=== PATIENT | female | born 1990 | race Caucasian/White ===

== ENCOUNTER → 2017-08-29 09:13 | Outpatient (CLI) | payer OTHER, SELFPAY ==
[2017-08-29 10:31] LABS: Add Manual Diff / Slide Review NO; Basophils Percent Auto 0.9 % (0-2); Eosinophils Percent Auto 3.4 % (2-4); Hematocrit 41.6 % (36-46); Hemoglobin 14.4 g/dL (12.0-16.0); Lymphocytes Percent Auto 38.6 % (25-40); Mean Corpuscular HGB Conc 34.6 % (30-36); Mean Corpuscular Hemoglobin 30.6 PG (26-34); Mean Corpuscular Volume 88.4 fL (80-100); Monocytes Percent Auto 7.2 % (3-14); Neutrophils Absolute Auto 4400 /uL (3000-5900); Neutrophils Percent Auto 49.9 % (50-75); Platelet Count 298 X10^3/uL (150-400); Red Blood Cell Count 4.71 X10^6/uL (4.0-5.2); White Blood Cell Count 8.7 X10^3/uL (4.5-11.0)
[2017-08-29 11:16] LABS: Alanine Aminotransferase 19 IU/L (9-52); Albumin 4.4 g/dL (3.5-5.0); Albumin Globulin Ratio 1.3 (1.0-2.8); Alkaline Phosphatase 59 U/L (38-126); Aspartate Aminotransferase 20 IU/L (14-36); BUN Creatinine Ratio 8.8 (6-22); Bilirubin Total 0.5 mg/dL (0.2-1.3); Blood Urea Nitrogen 7 mg/dL (7-17); Calcium 9.1 mg/dL (8.4-10.2); Carbon Dioxide 26 mmol/L (22-32); Chloride 105 mmol/L (98-107); Cholesterol 170 mg/dL (140-199); Estimated Glomerular Filt Rate > 60.0 mL/min (>60); Globulin 3.5 g/dL (1.7-4.1); Glucose 83 mg/dL (70-100); HDL Cholesterol 36 mg/dL (40-60); HEMOLYSIS < 15 (0-50); LDL Cholesterol Calculated 113 mg/dL (<100); Potassium 3.9 mmol/L (3.4-5.1); Sodium 141 mmol/L (137-145); Total Protein 7.9 g/dL (6.3-8.2); Triglycerides 107 mg/dL (35-150)
== END ==
PROVIDERS: Visit Provider Student in an Organized Health Care Education/Training Program
DX: J45.909 Unspecified asthma, uncomplicated (principal)
CPT/HCPCS: 36415; 80053; 80061; 85025

== ENCOUNTER → 2018-04-10 09:42 | Outpatient (CLI) | payer OTHER, SELFPAY ==
[2018-04-10 10:10] LABS: Add Manual Diff / Slide Review NO; Basophils Absolute Auto 100 /uL (0-100); Basophils Percent Auto 0.6 % (0-2); Eosinophils Absolute Auto 100 /uL (0-450); Eosinophils Percent Auto 0.8 % (2-4); Hematocrit 40.2 % (36-46); Hemoglobin 13.5 g/dL (12.0-16.0); Lymphocytes Absolute Auto 2900 /uL (1100-4500); Lymphocytes Percent Auto 27.9 % (25-40); Mean Corpuscular HGB Conc 33.6 % (30-36); Mean Corpuscular Volume 89.4 fL (80-100); Monocytes Absolute Auto 600 /uL (0-900); Monocytes Percent Auto 6.1 % (3-14); Neutrophils Absolute Auto 6800 /uL (1500-7000); Neutrophils Percent Auto 64.6 % (50-75); Platelet Count 301 X10^3/uL (150-400); Red Cell Distribution Width 13.3 % (11.6-14.8); White Blood Cell Count 10.5 X10^3/uL (4.5-11.0)
[2018-04-10 10:11] LABS: Appearance Urine UA CLEAR; Bilirubin Urine UA NEGATIVE (NEGATIVE); Color Urine UA YELLOW; Glucose Urine UA NEGATIVE (Negative); Ketones Urine UA NEGATIVE (NEGATIVE); Leukocyte Esterase Urine UA NEGATIVE (NEGATIVE); Nitrite Urine UA NEGATIVE (Negative); Occult Blood Urine UA NEGATIVE (Negative); Protein Urine UA NEGATIVE (Negative); Specific Gravity Urine UA <=1.005 (1.000-1.035); Urobilinogen Urine UA 0.2 E.U./dL (0.2)
[2018-04-10 10:29] LABS: Hemoglobin A1C% w Est Avg Glu 4.7 % (4.0-6.0)
[2018-04-10 11:08] LABS: Hepatitis B Surface Antigen NEGATIVE s/c (NEGATIVE); Rubella Antibody IgG 21.9 IU/mL (>15)
[2018-04-10 11:29] LABS: HIV 1 and 2 Antibody NEGATIVE (NEGATIVE); Hep C Virus Ab w/Reflex Quant NEGATIVE s/c (NEGATIVE)
[2018-04-12 12:44] LABS: RPR Screen Nonreactive (Nonreactive)
== END ==
PROVIDERS: Visit Provider Specialist
DX: O09.299 Supervision of pregnancy with other poor reproductive or obstetric history, unspecified trimester (principal); Z86.32 Personal history of gestational diabetes
CPT/HCPCS: 36415; 80055; 81003; 83036; 86703; 86787; 86803; 86850; 86900; 86901; 87077; 87086

== ENCOUNTER → 2018-06-05 10:12 | Outpatient (CLI) | payer OTHER, SELFPAY ==
[2018-06-10 11:38] LABS: Calc Gestational Age 17.3; Cigarette Smoker N; Donated Egg NOT GIVEN; Donor Egg Age NOT GIVEN; Estriol, Free 1.66 ng/mL; Inhibin A, Dimeric 146 pg/mL; Maternal Weight 147 lbs; Number of Fetuses 1; Previous Pregnancy Down Syndro NOT GIVEN; hCG, Serum 16.2 IU/mL
== END ==
PROVIDERS: Visit Provider Specialist
DX: Z34.82 Encounter for supervision of other normal pregnancy, second trimester (principal); Z3A.17 17 weeks gestation of pregnancy
CPT/HCPCS: 36415; 82105; 82677; 84702; 86336

== ENCOUNTER → 2018-06-26 15:05 | Outpatient (CLI) | payer OTHER, SELFPAY ==
--- NOTE | 2018-06-26 15:06 | DI.US.S_ITS ---
PROCEDURE: US OB >= 14 WEEKS FETUS INDICATIONS: Anatomic Survey OUTSIDE/PRIOR DATING DATA: Last menstrual period (LMP): Not available. LMP-based estimated date of delivery (GISSELLE): Not available. First dating scan (date and location): 04/10/18, by Dr. Szymanski. Estimated date of delivery (GISSELLE) from first dating scan: 11/11/18, by Dr. Szymanski. TECHNIQUE: Real-time scanning was performed of the fetus, with image documentation and biometric measurements. Endovaginal scanning: Not needed for this examination. COMPARISON: [facility], , OB >= 14 WEEKS FETUS, 06/05/2018, 10:07. FINDINGS: General: A single living intrauterine gestation is present. Presentation: Breech. Placenta: Placental position is posterior, without previa. Amniotic fluid index: 7.5 cm, normal range is 5-24 cm. heart rate: 143 beats per minute. Maternal cervical canal: 3.9 cm long. Normal lower limit is 2.5 cm. biometrics: Biparietal diameter: 4.4 cm, 19 weeks 2 days Head circumference: 17.6 cm, 20 weeks 1 day Abdominal circumference: 17.0 cm, 22 weeks 0 days Femur length: 3.2 cm, 20 weeks 0 days Estimated gestational age from initial scan: 20 weeks 2 days Composite gestational age from present scan: 20 weeks 3 days Estimated weight and percentile: 385 g, 79th percentile Measurement variability for biometric dating: +/- 7 days from 14 weeks to 15 weeks 6 days gestation, +/- 10 days from 16 weeks to 21 weeks 6 days gestation, +/- 2 weeks from 22 weeks to 27 weeks 6 days gestation, +/- 3 weeks for 28 weeks gestation or later. weight reference: 4500 g or EFW >90/95% is considered macrosomia or large for gestational age. EFW <10% is small for gestational age. EFW 5% or less is considered intra-uterine growth restriction. Anatomic survey: Neuro: Ventricles are non-dilated at less than 10 mm. Cisterna magna is normal at 3-11 mm. Cerebellum is normal in size and morphology. Nuchal skin fold: Normal at less than 6 mm between 14-21 weeks gestational age. Face: Nose and lips, facial profile are suboptimally visualized due to positioning. Spine: No evidence for spina bifida. Heart: 4-chambered heart is present, with suboptimally visualized ventricular outflow tracts due to positioning. Diaphragm: Diaphragm is intact. Stomach: Left-sided stomach is present. Kidneys: No hydronephrosis. Normal is less than 5 mm in 2nd trimester, less than 7 mm in 3rd trimester. Cord: 3-vessel cord has orthotopic insertion. Bladder: Normal in size. Extremities: All 4 extremities identified. IMPRESSION: Single living intrauterine gestation in current breech presentation, with suboptimally visualized facial profile and ventricular outflow tracts due to positioning. A followup limited OB ultrasound in approximately 2 weeks could be obtained to attempt completion of the anatomic survey. Dictated by: Brock Johnson M.D. on 06/27/2018 at 9:29 Approved by: Brock Johnson M.D. on 06/27/2018 at 9:37
== END ==
PROVIDERS: Visit Provider Specialist
DX: Z34.82 Encounter for supervision of other normal pregnancy, second trimester (principal); Z3A.20 20 weeks gestation of pregnancy
CPT/HCPCS: 76811

== ENCOUNTER → 2018-07-10 09:43 | Outpatient (CLI) | payer OTHER, SELFPAY ==
--- NOTE | 2018-07-10 09:44 | DI.US.S_ITS ---
PROCEDURE: US OB FOLLOW UP INDICATIONS: RE-EVALUATE PROFILE, OUTFLOW TRACTS OUTSIDE/PRIOR DATING DATA: Last menstrual period (LMP): Not available. LMP-based estimated date of delivery (GISSELLE): Not available. First dating scan (date and location): 04/10/18, by Dr. Szymanski Estimated date of delivery (GISSELLE) from first dating scan: 11/11/18, by Dr. Szymanski. TECHNIQUE: Real-time scanning was performed of the fetus, with image documentation. Endovaginal scanning: Not needed for this study. COMPARISON: [facility], ANY, OB < 14 WEEKS, 04/10/2018, 9:26. FINDINGS: A single living intrauterine gestation is present. Presentation: Vertex. Placenta: Placental position is posterior, without previa. Amniotic fluid index: 14.4 cm, normal range is 5-24 cm. heart rate: 150 beats per minute. Maternal cervical canal: 3.2 cm long. Normal lower limit is 2.5 cm. Estimated gestational age from initial scan: 22 weeks 2 days The facial profile and ventricular outflow tracts were not well seen on the most recent OB ultrasound, anatomic survey and repeat scanning today allowed excellent visualization of these areas, completing the anatomic survey.. IMPRESSION: Completion of anatomic survey, delivery date projected to be centered on 11/11/18+ or -5 days based on the early OB ultrasound performed by Dr. Szymanski. Dictated by: Brock Johnson M.D. on 07/10/2018 at 12:03 Approved by: Brock Johnson M.D. on 07/10/2018 at 12:06
== END ==
PROVIDERS: Visit Provider Specialist
DX: Z34.92 Encounter for supervision of normal pregnancy, unspecified, second trimester (principal); Z3A.22 22 weeks gestation of pregnancy
CPT/HCPCS: 76816

== ENCOUNTER → 2018-07-24 09:18 | Outpatient (CLI) | payer OTHER, SELFPAY ==
[2018-07-24 11:35] LABS: Hematocrit 39.9 % (36-46)
[2018-07-24 12:08] LABS: GTT (PREG) 1 Hour PP 50gm Dose 135 mg/dL (76-139)
== END ==
PROVIDERS: Visit Provider Specialist
DX: Z34.82 Encounter for supervision of other normal pregnancy, second trimester (principal)
CPT/HCPCS: 36415; 82950; 85014; 85018

== ENCOUNTER → 2018-10-16 15:17 | Outpatient (CLI) | payer OTHER, SELFPAY ==
[2018-10-18 13:20] LABS: Strep Grp B PCR NEG for Grp B Strep
== END ==
PROVIDERS: Visit Provider Specialist
DX: Z34.83 Encounter for supervision of other normal pregnancy, third trimester (principal); Z3A.36 36 weeks gestation of pregnancy
CPT/HCPCS: 87653

== ENCOUNTER 2018-10-25 16:05 | Outpatient (CLI) | payer OTHER, SELFPAY ==
--- NOTE | 2018-10-25 17:15 | P.TNLD_ITS ---
Visit Information Visit Information Date of evaluation: 10/25/18 Primary OB Provider: Ivy Szymanski Reason for Evaluation: Yes non-stress test non-stress test reason: hypertension/pre-eclampsia Vital Signs Vital Signs: Blood pressure 127/88, pulse of 92 [facility] Medical History (Updated 10/09/18 @ 11:04 by Ivy Szymanski MD) History of gestational diabetes in prior , currently in third trimester (Acute) Hypertension affecting in third trimester (Acute) Social History Smoking Status: Never smoker Social History Smoking Status: Never smoker Evaluation Evaluation Baseline heart rate: 130 Variability: Moderate (11-25) monitor accelerations: Present monitor decelerations: Absent Contraction Frequency (minutes): 8 Uterine Contraction Intensity: Mild Category of Tracing: I Diagnosis, Plan/Disposition Final Diagnosis (1) Hypertension affecting in third trimester: Current Visit: No Status: Acute Plan/Disposition Plan: Patient with mildly increased blood pressures no other signs or symptoms of preeclampsia. Will drop preeclampsia labs. If normal keep her appointment for next week with precautions OB Disposition: home
[2018-10-25 17:36] LABS: Add Manual Diff / Slide Review NO; Basophils Absolute Auto 0 /uL (0-100); Basophils Percent Auto 0.4 % (0-2); Eosinophils Absolute Auto 200 /uL (0-450); Eosinophils Percent Auto 1.5 % (2-4); Hematocrit 38.4 % (36-46); Hemoglobin 13.3 g/dL (12.0-16.0); Lymphocytes Absolute Auto 3500 /uL (1100-4500); Lymphocytes Percent Auto 30.2 % (25-40); Mean Corpuscular HGB Conc 34.6 % (30-36); Mean Corpuscular Volume 89.7 fL (80-100); Monocytes Absolute Auto 900 /uL (0-900); Monocytes Percent Auto 7.7 % (3-14); Neutrophils Absolute Auto 7000 /uL (1500-7000); Neutrophils Percent Auto 60.2 % (50-75); Platelet Count 222 X10^3/uL (150-400); Red Blood Cell Count 4.28 X10^6/uL (4.0-5.2); Red Cell Distribution Width 13.8 % (11.6-14.8); White Blood Cell Count 11.6 X10^3/uL (4.5-11.0)
[2018-10-25 17:53] LABS: Alanine Aminotransferase 9 IU/L (9-52); Albumin 3.8 g/dL (3.5-5.0); Albumin Globulin Ratio 1.1 (1.0-2.8); Alkaline Phosphatase 134 U/L (38-126); Aspartate Aminotransferase 23 IU/L (14-36); BUN Creatinine Ratio 13.3 (6-22); Bilirubin Total 0.3 mg/dL (0.2-1.3); Bilirubin Unconjugated 0.2 mg/dL (0.0-1.1); Blood Urea Nitrogen 8 mg/dL (7-17); Calcium 10.5 mg/dL (8.4-10.2); Carbon Dioxide 25 mmol/L (22-32); Chloride 103 mmol/L (98-107); Estimated Glomerular Filt Rate > 60.0 mL/min (>60); Globulin 3.4 g/dL (1.7-4.1); Glucose 70 mg/dL (70-100); HEMOLYSIS < 15 (0-50); Sodium 136 mmol/L (137-145); Total Protein 7.2 g/dL (6.3-8.2); Uric Acid 5.9 mg/dL (2.5-6.2)
== END 2018-10-25 17:30 | disposition home or self-care (01) ==
LOC: LABOR 16:57 → OB 10-29 12:39
PROVIDERS: Visit Provider Specialist
DX: O13.3 Gestational [pregnancy-induced] hypertension without significant proteinuria, third trimester (principal); Z3A.37 37 weeks gestation of pregnancy
CPT/HCPCS: 36415; 59025; 80048; 80076; 84550; 85025; G0378; G0379

== ENCOUNTER 2018-11-05 06:50 | Inpatient (IN) | payer OTHER, SELFPAY ==
[2018-11-05 07:08] VITALS: BP 135/93
[2018-11-05 07:54] LABS: Add Manual Diff / Slide Review NO; Basophils Absolute Auto 100 /uL (0-100); Basophils Percent Auto 0.6 % (0-2); Eosinophils Absolute Auto 100 /uL (0-450); Eosinophils Percent Auto 1.3 % (2-4); Hematocrit 36.8 % (36-46); Hemoglobin 12.6 g/dL (12.0-16.0); Lymphocytes Absolute Auto 3500 /uL (1100-4500); Lymphocytes Percent Auto 32.7 % (25-40); Mean Corpuscular HGB Conc 34.3 % (30-36); Mean Corpuscular Hemoglobin 30.9 PG (26-34); Mean Corpuscular Volume 90.1 fL (80-100); Monocytes Absolute Auto 900 /uL (0-900); Monocytes Percent Auto 8.4 % (3-14); Neutrophils Absolute Auto 6100 /uL (1500-7000); Platelet Count 205 X10^3/uL (150-400); Red Blood Cell Count 4.08 X10^6/uL (4.0-5.2); Red Cell Distribution Width 14.5 % (11.6-14.8); White Blood Cell Count 10.7 X10^3/uL (4.5-11.0)
[2018-11-05] MEDS: LACTATED RINGERS 1,000 ML 100 ML IV (08:04)
[2018-11-05] MEDS: OXYTOCIN PREMIX 30 UNIT/500 ML PLAST..BAG IV (08:14)
--- NOTE | 2018-11-05 08:42 | PM.OBHP.1 ---
OB HPI Date/Time Date of admission: 11/05/18 Date Patient Seen: 11/05/18 Time Patient Seen: 08:42 History of Present Condition Chief complaint: OBS : 2 Para: 1 Estimated Date of Delivery: 11/11/18 Estimated Gestational Age (weeks): 39 Narrative: Emily Healy is a 28 year old female admitted at 39 weeks for chronic hypertension Indications Indication for induction OB: medical complication (Chronic hypertension) History of Present care: good care, initiated at week # (9), number of visits (12) and pounds weight gain (24) Dating criteria: LMP confirmed by 1st trimester US Ultrasounds: normal mid trimester US Medical complications: cardiovascular (Chronic hypertension) Preadmission Labs Blood type: O (+) positive -: Antibody screen: negative, GBS status: negative, HBsAG: negative, HIV: negative and RPR/VDLR: negative -: Chlamydia screen: not detected and Gonorrhea screen: not detected -: Rubella: immune and Varicella: immune HCAB: negative Quad screen: Normal 1 hr GTT: 135 Prior (ies) History: 03/10/2016 induced at 38 weeks for preeclampsia and gestational diabetes female 5 lb 10 oz with epidural Evaluation Evaluation Baseline heart rate: 145 Variability: Moderate (11-25) monitor accelerations: Present monitor decelerations: Absent Contraction Frequency (minutes): 0 Category of Tracing: I Cervical dilation (cm): 2 Cervical effacement (%): 80 station: -1 Laboratory results: Laboratory Tests 11/05/18 11/05/18 07:44 07:44 WBC 10.7 RBC 4.08 Hgb 12.6 Hct 36.8 MCV 90.1 MCH 30.9 MCHC 34.3 RDW 14.5 Plt Count 205 Neut % (Auto) 57.0 Lymph % (Auto) 32.7 [place] % (Auto) 8.4 Eos % (Auto) 1.3 L Baso % (Auto) 0.6 Neut # (Auto) 6100 Lymph # (Auto) 3500 [place] # (Auto) 900 Eos # (Auto) 100 Baso # (Auto) 100 Blood Type O Positive Antibody Screen Negative [facility] Medical History (Updated 11/05/18 @ 08:49 by Ivy Szymanski MD) Asthma (Acute) History of gestational diabetes in prior , currently in third trimester (Acute) Hypertension affecting in third trimester (Acute) Surgical History (Updated 11/05/18 @ 08:50 by Ivy Szymanski MD) H/O sinus surgery (Acute ~2000) Family History (Updated 11/05/18 @ 08:51 by Ivy Szymanski MD) Father Diabetes mellitus Hypertension Hyperlipidemia Mother Cancer Social History Smoking Status: Former smoker Family History (Updated 11/05/18 @ 08:51 by Ivy Szymanski MD) Father Diabetes mellitus Hypertension Hyperlipidemia Mother Cancer Social History Smoking Status: Former smoker Meds Home Medications and Allergies Home Medications Medication Instructions Recorded Confirmed Type prenat.vits,carlos,yim-uvhz-vwnfk 1 tab PO DAILY 04/03/18 04/03/18 History albuterol sulfate 90 mcg/actuation 1 inhalation INHALATION Q4-6H PRN 04/10/18 Rx breath activated powder inhaler #1 each fluticasone propionate 44 1 inhalation INHALATION BID #10.6 07/03/18 Rx mcg/actuation HFA aerosol inhaler gram omeprazole 40 mg capsule,delayed 40 mg PO DAILY #30 cap 09/13/18 Rx release Double Electric breast Pump and #1 each 10/11/18 Rx Supplies meclizine 25 mg tablet 25 mg PO QID PRN #12 tab MDD 100 mg 10/24/18 Rx Allergies Allergy/AdvReac Type Severity Reaction Status Date / Time Sulfa (Sulfonamide Allergy Severe Anaphylaxis Verified 04/03/18 12:52 Antibiotics) Review of Systems Review of Systems Narrative: Patient denies headaches, scotomata, epigastric pain. Good movement no leakage of fluid or regular contractions. Patient denies current need for her asthma medications. ROS Unobtainable: All systems reviewed & are unremarkable except as noted in HPI and below Exam Vital Signs (past 8 hours): Blood pressure 132/93, pulse of 95, temperature 97.3?- 11/05/18 07:08 Blood Pressure 135/93 H Narrative Exam Narrative: HEENT exam within normal limits. Lungs are clear to auscultation percussion. Heart is regular rate and rhythm no S3-S4 or murmurs. Abdomen is gravid with vertex infant. Extremities with trace edema and nontender. Objective Labs Result Diagrams: 11/05/18 07:44 Labs: Laboratory Results - last 24 hr 11/05/18 11/05/18 07:44 07:44 WBC 10.7 RBC 4.08 Hgb 12.6 Hct 36.8 MCV 90.1 MCH 30.9 MCHC 34.3 RDW 14.5 Plt Count 205 Neut % (Auto) 57.0 Lymph % (Auto) 32.7 [place] % (Auto) 8.4 Eos % (Auto) 1.3 L Baso % (Auto) 0.6 Neut # (Auto) 6100 Lymph # (Auto) 3500 [place] # (Auto) 900 Eos # (Auto) 100 Baso # (Auto) 100 Blood Type O Positive Antibody Screen Negative Assessment and Plan Assessment and Plan Assessment and Plan narrative: 39 week gestation with chronic hypertension admitted for Pitocin induction
--- NOTE | 2018-11-05 19:25 | P.PCNOB_ITS ---
Labor & Delivery Delivery date: 11/05/18 Intrapartal events: None Induction method: per pitocin protocol Delivery monitor: external FHT and external uterine Route of delivery: L&D Laceration Description: Vaginal - 1st Degree Delivery repair: chromic (3 0) Estimated blood loss (mL): 200 Anesthesia type: Epidural Narrative: Patient arrived on Labor and delivery for Pitocin induction for mild chronic hypertension. She was given an epidural catheter for pain control. She was AROM for slightly meconium-stained fluid. heart tones were category 1 to category 2 with throughout labor. Patient delivered spontaneously, over an intact perineum. The infant was placed on the maternal abdomen. After the cord stopped pulsating the cord was clamped cut and cord bloods obtained. The placenta delivered spontaneously, intact, with 3 vessels. Patient had a first- degree vaginal tear that was repaired with 3 0 chromic suture. Both infant and mother doing well. [place] Baby 1: Infant gender: Male Presentation: vertex position: Right Occiput Anterior Placenta delivery description: Spontaneous cord vessel description: 3 Vessels score (1 min): 8 score (5 min): 9 Plan for aftercare: Routine care. Monitor blood pressures.
[2018-11-06 05:42] VITALS: TEMP 36.8
[2018-11-06] MEDS: IBUPROFEN 600 MG TABLET PO ×2 (05:42→20:51)
[2018-11-06] MEDS: LANOLIN OINT 7 GM 1 APPLIC TOP (05:42)
[2018-11-06] MEDS: DERMOPLAST SPRAY 20% 60 ML 1 SPRAY TOP (05:42)
[2018-11-06 06:55] LABS: Add Manual Diff / Slide Review NO; Basophils Absolute Auto 100 /uL (0-100); Basophils Percent Auto 0.4 % (0-2); Eosinophils Absolute Auto 0 /uL (0-450); Eosinophils Percent Auto 0.3 % (2-4); Hematocrit 33.9 % (36-46); Hemoglobin 11.6 g/dL (12.0-16.0); Lymphocytes Absolute Auto 3200 /uL (1100-4500); Lymphocytes Percent Auto 23.2 % (25-40); Mean Corpuscular HGB Conc 34.2 % (30-36); Mean Corpuscular Hemoglobin 31.1 PG (26-34); Mean Corpuscular Volume 90.7 fL (80-100); Monocytes Absolute Auto 900 /uL (0-900); Monocytes Percent Auto 6.5 % (3-14); Neutrophils Absolute Auto 9500 /uL (1500-7000); Neutrophils Percent Auto 69.6 % (50-75); Platelet Count 198 X10^3/uL (150-400); Red Blood Cell Count 3.74 X10^6/uL (4.0-5.2); Red Cell Distribution Width 14.4 % (11.6-14.8); White Blood Cell Count 13.6 X10^3/uL (4.5-11.0)
[2018-11-06] MEDS: DOCUSATE 250 MG CAPSULE PO (09:50)
[2018-11-06 15:51] VITALS: BP 150/92; PULSE 100
[2018-11-06] MEDS: LABETALOL 100 MG TABLET PO ×2 (15:51→20:51)
--- NOTE | 2018-11-06 17:19 | PM.OBPN.1 ---
Subjective - OB Subjective Patient comments: no complaints [place] baby status: other (Being evaluated for possible tongue tie) feeding status: pumping and bottle feeding Date Patient Seen: 11/06/18 Time Patient Seen: 17:20 Interval history: day 1. Patient denies any headaches, scotomata, epigastric pain. Minimal uterine pain. Minimal lochia. There is some difficulty with baby latching so she is pumping and bottle feeding. Exam Vital Signs (past 8 hours): Blood pressure is elevated 150/91, pulse 92, temperature 97.8?- 11/06/18 15:51 Pulse Rate 100 H Blood Pressure 150/92 H Narrative Exam Narrative: Abdomen is soft, nontender. Uterus is firm, at U, nontender. Minimal lochia. Extremities with trace edema and nontender. Objective Labs Result Diagrams: 11/06/18 06:28 Labs: Laboratory Results - last 24 hr 11/06/18 06:28 WBC 13.6 H RBC 3.74 L Hgb 11.6 L Hct 33.9 L MCV 90.7 MCH 31.1 MCHC 34.2 RDW 14.4 Plt Count 198 Neut % (Auto) 69.6 Lymph % (Auto) 23.2 L [place] % (Auto) 6.5 Eos % (Auto) 0.3 L Baso % (Auto) 0.4 Neut # (Auto) 9500 H Lymph # (Auto) 3200 [place] # (Auto) 900 Eos # (Auto) 0 Baso # (Auto) 100 Assessment & Plan Assessment and Plan (1) Vaginal delivery: Status: Acute Current Visit: Yes (2) Chronic hypertension with exacerbation during in third trimester: Status: Acute Assessment and plan: Will start labetalol for hypertension. Otherwise routine care. Current Visit: Yes Plan day: 1 plan OB: routine care Time Spent With Patient Time: Total time spent is greater than 50% in coordination of care (as documented) at patient's floor/unit and/or counseling patient: Time with patient: less than 15 minutes
[2018-11-06 20:51] VITALS: BP 131/84; PULSE 103
[2018-11-07] VITALS: BP 113/70; PULSE 90
[2018-11-07] MEDS: IBUPROFEN 600 MG TABLET PO ×2 (02:47→09:00)
--- NOTE | 2018-11-07 07:56 | P.DS_ITS ---
Discharge Providers Provider Date of admission: 11/05/18 06:50 Discharge Date: 11/07/18 Consults: 11/05/18 07:43 Consult to Anesthesiology Urgent Comment: Consulting Provider: Anesthesiologist Reason for consultation: Epidural Has provider been notified: No 11/05/18 21:41 Consult to Professional Golf Tournament Player Routine Comment: Discharge provider: Ivy Szymanski MD Summary Hospital Course Date Patient Seen: 11/07/18 Time Patient Seen: 07:56 Procedures: Pitocin induction for hypertension, epidural catheter, spontaneous vaginal delivery, repair of first-degree vaginal tear Hospital Course: Patient was admitted for Pitocin induction for hypertension and at 39 weeks. She had a spontaneous vaginal delivery. Her blood pressures remained elevated after the delivery so she was started on labetalol. Her blood pressures decreased nicely. She had no signs or symptoms of preeclampsia. Peripartum Data Infant Delivery Method: Natural Vaginal Procedures: Pitocin induction for hypertension, epidural catheter, vaginal delivery, repair of first-degree vaginal tear complications: none [place] 1: Gender: Male Disposition of : home Discharge Diagnosis (1) Vaginal delivery: Status: Acute (2) Chronic hypertension with exacerbation during in third trimester: Status: Acute Status at Discharge Cognitive/behavioral status at discharge: oriented Functional status at discharge: independent ambulation Overall status at discharge: patient is progressing back to baseline Time Spent with Patient Time attestation: Total time spent providing and/or coordinating discharge services: Time spent: Less than 30 minutes Objective Labs Result Diagrams: 11/06/18 06:28 Exam Vital Signs (past 8 hours): - Blood pressure 116/71, pulse of 92, temperature 97.2? 11/07/18 00:00 Pulse Rate 90 Blood Pressure 113/70 Narrative Exam Narrative: Abdomen is soft, nontender. Uterus is firm, at U, nontender. Mild lochia. Extremities with mild edema and nontender. Patient's blood type is O positive and she is rubella immune. Discharge Plan Discharge Plan Patient Disposition: Home Discharge Med Rec/Prescriptions Prescriptions: New ibuprofen 600 mg Tablet 600 mg PO Q6HR PRN (Reason: Pain, Mild (1-3)) Qty: 30 RF: 0 labetalol 100 mg Tablet 100 mg PO BID Qty: 60 RF: 2 Continued (DME) Double Electric breast Pump and Supplies (E0603) See Rx Instructions .ROUTE .MEDSUPPLY Qty: 1 RF: 0 meclizine 25 mg tablet 25 mg PO QID MDD 100 mg PRN (Reason: dizziness) Qty: 12 RF: 0 Flovent HFA 44 mcg/actuation HFA aerosol inhaler 1 inhalation INHALATION BID Qty: 10.6 RF: 2 albuterol sulfate 90 mcg/actuation aerosol powdr breath activated 1 inhalation INHALATION Q4-6H PRN (Reason: shortness of breath or wheezing) Qty: 1 RF: 3 Hold Instructions: patient not using prenat.vits,carlos,fmi-[id number] tablet 1 tab PO DAILY RF: 0 omeprazole 40 mg capsule,delayed release(DR/EC) 40 mg PO DAILY Qty: 30 RF: 1 Follow up/Referrals: Ivy Szymanski MD [Physician] - 1 Week (BP check, 4weeks exam) Provider Discharge Instructions Diet: Regular Activity: nothing in vagina for 4 weeks Skin/Wound/Dressing Care Report to your healthcare provider any signs of infection, such as:: chills, f ever and increased pain
[2018-11-07] MEDS: DOCUSATE 250 MG CAPSULE PO (09:01)
[2018-11-07] MEDS: LABETALOL 100 MG TABLET PO (09:01)
== END 2018-11-07 10:57 | disposition home or self-care (01) | DRG 807 ==
PROVIDERS: Admitting Provider Specialist; Visit Provider Specialist
DX: O16.4 Unspecified maternal hypertension, complicating childbirth (principal); Z37.0 Single live birth; Z3A.39 39 weeks gestation of pregnancy; O70.0 First degree perineal laceration during delivery; O77.0 Labor and delivery complicated by meconium in amniotic fluid
CPT/HCPCS: 01967; 36415; 59050; 59400; 85025; 86850; 86900; 86901; G0379; J2590